=== PATIENT | female | born 1990 | race Caucasian/White ===

== ENCOUNTER 2017-02-11 12:31 | Emergency (ER) | payer OTHER ==
[~2017-02-11] VITALS: Ht 167.6 cm; Wt 61.4 kg
[2017-02-11 12:35] VITALS: BP 128/92; PULSE 69; RESP 16; O2SAT 100
--- NOTE | 2017-02-11 12:41 | ED.REPORT ---
HPI- Female Date of Service February 11, 2017 ED Provider: Dr. Lucio 26 y/o female with a hx of frequent syncopal episodes (cause unknown) presents to the ED complaining of LOC, this morning at work. Pt reports she has been experiencing some bleeding [facility] but the bleeding significantly increased today at work. She reports using more 3 pads today and bleeding through her pants. Associated sx include dizziness, lightheadedness, diaphoresis, chills and abdominal cramps The pt recently changed her control. She is also taking Naproxen shes been told her syncopal episodes may be due to a blood clot issue. Nursing Notes Stated Complaint: BLOOD LOSS HEAVY,COLD SWEATS,CRAMP PAIN,DIZZINESS Chief Complaint: Female Abdominal Pain Nursing Notes Reviewed: Yes Allergies: Uncoded Allergies: No Known Allergies (Allergy, Mild, 08/13/04) General Time Seen by MD: 12:41 Chief Complaint Other (LOC) Hx Obtained From: Patient Arrived By: Walk-in Sudden in Onset?: Yes Onset Occurred: 21 - 23 hours ago Symptom Duration: Since onset Location: : Epigastric Quality: Cramping Severity: Current: Mild Severity: Maximum: Mild Recent Healthcare: Recent doctor visit Similar Sx Previous: No Past Medical History Past Medical History None reported. Past Surgical History None reported. Smoking History Never Smoker Social History Other Social History: Good social support, Local resident Ambulatory Status Independent Review of Systems Constitutional: Reports: Chills GI: Reports: Abdominal pain Female: Reports: Vaginal bleeding - abnl Skin: Reports Diaphoresis Neurologic: Reports: Change LOC, Dizziness, Lightheaded Complete sys rev & neg: except as marked. Physical Exam Initial Vital Signs Vital Signs (First) Date Time Temp Pulse Resp B/P Pulse Ox O2 Delivery O2 Flow Rate FiO2 02/11/17 12:35 37.2 69 16 128/92 100 Room Air Initial VS: Reviewed Respiratory: Breath sounds normal, Clear to auscultation, No respiratory distress Cardiovascular: Regular rate & rhythm, Heart sounds normal, Intact distal pulses Extremities: Vascular intact, Neuro intact, No swelling, No tenderness Skin: Warm, Dry, No cyanosis Neurologic: Alert, Oriented, Nonfocal Psychiatric: Mood/affect normal, Behavior normal, Normal thought content Female Genitourinary: No bleeding, No cervical motion tend Pelvic Exam: mild cervical mucus, erythematus and friable looking cervix. General/Constitutional: Awake, Alert, Well appearing Thin Abdomen: Atraumatic, Soft, No guarding, No rebound Mild suprapubic tenderness Interpretation & Diagnostics Lab Results Interpretation Result Diagram: 02/11/17 1315 02/11/17 1315 Test 02/11/17 13:15 02/11/17 13:50 White Blood Count 5.7th/mm3 (3.8-10.1) Red Blood Count 4.77mil/mm3 (3.90-5.20) Hemoglobin 13.9g/dL (12.0-15.6) Hematocrit 41.2% (35.0-46.0) Mean Corpuscular Volume 86.4fL (81-100) Mean Corpuscular Hemoglobin 29.1pg (27.0-35.0) Mean Corpuscular Hemoglobin Concent 33.7% (32.0-37.0) Red Cell Distribution Width 13.0% (12.3-15.4) Platelet Count 187bil/L (150-400) Sodium Level 140mEq/L (134-144) Potassium Level 3.7mEq/L (3.5-5.2) Chloride Level 105mEq/L (97-108) Carbon Dioxide Level 22mmol/L (18-29) Blood Urea Nitrogen 13mg/dL (6-20) Creatinine 0.55mg/dL (0.57-1.00) Estimat Glomerular Filtration Rate 195mL/min (>59) Glucose Level 100mg/dL (60-99) Calcium Level 9.3mg/dL (8.5-10.1) Total Bilirubin 0.7mg/dL (0.0-1.2) Aspartate Amino Transf (AST/SGOT) 18U/L (0-50) Alanine Aminotransferase (ALT/SGPT) 9U/L (0-32) Alkaline Phosphatase 52U/L (25-150) Total Protein 6.8g/dL (6.4-8.4) Albumin 4.4g/dL (3.4-5.0) Re-Eval/Medical Decision Med Decision/Clinical Course No ongoing bleeding, she does have a friable cervix but it sounds like that being worked up by [facility]. She had mild cervical mucus with the reassuring wet mount, she reports very recent gonorrhea and chlamydia testing and she has no cervical motion tenderness to suggest PID. EKG is normal, blood work is normal, urinalysis is without signs of infection. I do not find any acute medical condition at this point and she will be discharged. Return and follow-up precautions given. Patient vocalized that she will plan a follow-up appointment with [facility] tomorrow. Re-Evaluation/Progress #1: Time of Eval: 01:48 Re-Evaluation/Progress Note: Pelvic exam performed. Re-Evaluation/Progress #2: Time of Eval: 02:45 Re-Evaluation/Progress Note: Rechecked pt. Discussed lab results and diagnosis. Informed the pt of the plan to discharge. Pt understands and agrees with plan. F/U instructions and RTER warning given. All questions addressed. Counseled Regarding: Diagnosis, Lab results, Need for follow-up, When/why to return to ED Discharge & Departure Impression: Primary Impression: Vaginal bleeding Disposition: Home Additional Instructions: You are not . Your bleeding has resolved. Continue taking naproxen to treat your cramping. Follow-up with [facility] tomorrow. Return to the ER if you develop severe uncontrolled pain, fever over 101, persistent vomiting, heavy bleeding that he cannot control, or other concerns. Referrals: [facility] ([facility]) Scribe Attestation Portions of this note were transcribed by Andres Goodman. I, , personally performed the history, physical exam and medical decision-making;I reviewed and confirmed the accuracy of the information in the transcribed note. Signed by Winnie Castillo. 02/11/17 0300 copies to: [facility] Tyrone Lucio DO February 11, 2017 12:41 Andres Goodman February 11, 2017 12:56
[2017-02-11] MEDS ORDERED: 0.9% Sodium Chloride 1,000 ML IV ONE (12:53)
[2017-02-11 13:30] LABS: Mean Corpuscular Hemoglobin 29.1 pg (27.0-35.0); Mean Corpuscular Volume 86.4 fL (81-100)
[2017-02-11 15:10] VITALS: BP 106/64; PULSE 64; RESP 15; O2SAT 100
== END 2017-02-11 15:07 | disposition home or self-care (01) ==
LOC: SED 12:31
DX: N93.9 Abnormal uterine and vaginal bleeding, unspecified (principal)
CPT/HCPCS: 36415; 80053; 81025; 85027; 87210; 87491; 87591; 93005; 99284; J7030